=== PATIENT | female | born 1945 | race Caucasian/White ===

== ENCOUNTER 2017-09-22 07:22 | Day surgery (SDC) | payer MEDICARE, BC ==
[2017-09-22 08:05] LABS: LYMPH # 1.7 K/mm3 (0.7-4.5); LYMPH % 27.2 % (10-50.0)
[2017-09-22 08:15] LABS: BUN 57 mg/dL (7-18); GFR (ESTIMATED) 25 ML/MIN (59-)
--- NOTE | 2017-09-22 10:16 | RADIOLOGY REPORT PS360 ---
CARDIAC CATHETERIZATION DATE OF CATHETERIZATION: PROCEDURES: Right heart catheterization Right femoral vein central access Catheter placement in the left pulmonary artery Left pulmonary artery selective angiogram Placement of Cardiomem-pulmonary artery sensor in the left pulmonary artery Post pulmonary artery sensor right heart catheterization INDICATION FOR TEST: 1. Class III congestive heart failure 2. Recent hospitalization for decompensated congestive heart failure within the last 12 months Informed consent was obtained prior to the procedure. COMPLICATIONS: None ESTIMATED BLOOD LOSS: Less than 10 ml. TECHNIQUE: One percent lidocaine was used to anesthetize the right groin. The right femoral vein was accessed via the Seldinger technique and an 11 [place] sheath was placed in the right femoral vein. A [place]-Melody catheter was floated into the pulmonary artery and a right heart catheterization was performed along with cardiac output using the thick a correlation. The Stitzer-Melody catheter was then wedged into the left pulmonary artery and a pulmonary artery angiogram was performed. Following this an nitinol wire was placed into the pulmonary artery and the Stitzer-Melody catheter was removed. The Cardiomem pulmonary artery sensor was deployed in the left pulmonary artery. Following this the Stitzer-Melody catheter was placed back into the pulmonary artery and repeat right heart catheterization was performed. The device was then synchronized with the pulmonary artery tracings. At the end of the procedure the patient was transferred to the postop holding area in stable condition for sheath removal. HEMODYNAMICS: Right atrial pressure is 8 mm Hg. Right ventricular pressure is 32/8 mm Hg. Pulmonary arterial pressure is 32/15 mm Hg. Pulmonary artery occlusion pressure is 12 mm Hg. SATURATIONS: RA is 77 %. PA is 77 %. Femoral artery saturation 95% Thick cardiac output 9.68 L/m IMPRESSION: 1. Successful placement of Cardiomem pulmonary artery sensor into the pulmonary artery 2. Successful pulmonary artery angiogram 3. Successful right heart catheterization PLAN: 1. Will follow patient in the outpatient setting per standard of care for pulmonary artery centrally device 2. Continue treatment for congestive heart
--- NOTE | 2017-09-22 10:16 | RADIOLOGY REPORT PS360 ---
CARDIAC CATHETERIZATION DATE OF CATHETERIZATION: PROCEDURES: Right heart catheterization Right femoral vein central access Catheter placement in the left pulmonary artery Left pulmonary artery selective angiogram Placement of Cardiomem-pulmonary artery sensor in the left pulmonary artery Post pulmonary artery sensor right heart catheterization INDICATION FOR TEST: 1. Class III congestive heart failure 2. Recent hospitalization for decompensated congestive heart failure within the last 12 months Informed consent was obtained prior to the procedure. COMPLICATIONS: None ESTIMATED BLOOD LOSS: Less than 10 ml. TECHNIQUE: One percent lidocaine was used to anesthetize the right groin. The right femoral vein was accessed via the Seldinger technique and an 11 [place] sheath was placed in the right femoral vein. A [place]-Melody catheter was floated into the pulmonary artery and a right heart catheterization was performed along with cardiac output using the thick a correlation. The [place]-Melody catheter was then wedged into the left pulmonary artery and a pulmonary artery angiogram was performed. Following this an nitinol wire was placed into the pulmonary artery and the [place]-Melody catheter was removed. The Cardiomem pulmonary artery sensor was deployed in the left pulmonary artery. Following this the [place]-Melody catheter was placed back into the pulmonary artery and repeat right heart catheterization was performed. The device was then synchronized with the pulmonary artery tracings. At the end of the procedure the patient was transferred to the postop holding area in stable condition for sheath removal. HEMODYNAMICS: Right atrial pressure is 8 mm Hg. Right ventricular pressure is 32/8 mm Hg. Pulmonary arterial pressure is 32/15 mm Hg. Pulmonary artery occlusion pressure is 12 mm Hg. SATURATIONS: RA is 77 %. PA is 77 %. Femoral artery saturation 95% Thick cardiac output 9.68 L/m IMPRESSION: 1. Successful placement of Cardiomem pulmonary artery sensor into the pulmonary artery 2. Successful pulmonary artery angiogram 3. Successful right heart catheterization PLAN: 1. Will follow patient in the outpatient setting per standard of care for pulmonary artery centrally device 2. Continue treatment for congestive heart
[2017-09-22 10:19] LABS: ARTERIAL O2 SAT CATH LAB 77.7 % (90-100); VENOUS O2 SAT CATH LAB 77.6 % (75-80)
[2017-09-22 14:47] VITALS: BP 147/72
== END 2017-09-22 14:48 | disposition home or self-care (01) ==
LOC: CATHLAB 07:22
PROVIDERS: Internal Medicine
PROC: 02H Heart and Great Vessels, Insertion (ICD-10-PCS; 2017-09-22)
PROC: B31T1ZZ Fluoroscopy of Left Pulmonary Artery using Low Osmolar Contrast (ICD-10-PCS; 2017-09-22)
PROC: 4A023N6 Measurement of Cardiac Sampling and Pressure, Right Heart, Percutaneous Approach (ICD-10-PCS; 2017-09-22)
PROC: 4A023N6 Measurement of Cardiac Sampling and Pressure, Right Heart, Percutaneous Approach (ICD-10-PCS; principal; 2017-09-22 08:30)
DX: I50.23 Acute on chronic systolic (congestive) heart failure (principal); I27.29 Other secondary pulmonary hypertension
CPT/HCPCS: J1644; J2405; Q9967